=== PATIENT | female | born 1965 | race Caucasian/White ===

== ENCOUNTER 2016-12-21 08:06 | Emergency (ER) | payer OTHER ==
[~2016-12-21] VITALS: Ht 172.7 cm; Wt 124.2 kg
[2016-12-21 11:45] LABS: HEMATOCRIT 43.9 % (36.0-46.0); MCH 31.7 PG (29.0-34.0); MCHC 33.9 G/DL (30.0-36.0); MCV 93.4 FL (83-99); MEAN PLAT.VOLUME 11.1 uM^3 (9.5-12.4); PLATELET COUNT 303 K/uL (156-360); RBC DIS.WIDTH-CV 12.9 % (11.8-14.6); RBC DIS.WIDTH-SD 42.8 % (39-53); WHITE BLOOD COUNT 11.9 K/uL (4.1-10.2)
[2016-12-21 12:00] VITALS: BP 116/71
[2016-12-21 12:06] LABS: CHLORIDE 104 mEq/L (99-109); POTASSIUM 4.2 mEq/L (3.7-5.4); SODIUM 138 mEq/L (136-147); TROP-I INTERPRETATION NEGATIVE; TROPONIN-I < 0.01 ng/mL (0.0-0.30)
[2016-12-21 12:07] LABS: GLUCOSE 106 mg/dL (70-99)
[2016-12-21 12:09] LABS: ANION GAP 11 MEQ/L (2-14)
[2016-12-21 12:11] LABS: GFR ESTIMATE (CALCULATED) > 59 mL/min/
[2016-12-21 12:12] LABS: UREA NITROGEN (BUN) 19 mg/dL (9-23)
[2016-12-21 12:19] LABS: QUANTITATIVE HCG 4.3 MIU/ML
[2016-12-21] MEDS ORDERED: LEVAQUIN750 MG PO (13:25)
[2016-12-21] MEDS ORDERED: ZOFRAN ODT4 MG PO (13:25)
[2016-12-21 13:58] LABS: ADD MIUA? NO; BILIRUBIN NEGATIVE; BLOOD NEGATIVE; COLOR YELLOW ((YELLOW)); GLUCOSE (STRIP) NEGATIVE; KETONES NEGATIVE; LEUKOCYTES NEGATIVE; NITRITE NEGATIVE; PROTEIN (STRIP) NEGATIVE; SPECIFIC GRAVITY 1.016 (1.000-1.030); UCUL ADDED? NO; UROBILINOGEN 0.2 MG/DL (0.2-1.0)
== END 2016-12-21 14:19 | disposition home or self-care (01) ==
LOC: EME 08:06
PROVIDERS: Emergency Medicine
DX: J40 Bronchitis, not specified as acute or chronic (principal); J45.909 Unspecified asthma, uncomplicated; K21.9 Gastro-esophageal reflux disease without esophagitis; Z87.891 Personal history of nicotine dependence
CPT/HCPCS: 71010; 80048; 81003; 84484; 84702; 85027; 93005; 99281; 99285